=== PATIENT | male | born 1940 | race Caucasian/White ===

== ENCOUNTER 2017-12-27 10:49 | Emergency (ER) | payer OTHER ==
[~2017-12-27] VITALS: Ht 175.3 cm; Wt 41.8 kg
[~2017-12-27 10:49] MED LIST: IBUP-232 PO
--- NOTE | 2017-12-27 11:35 | PD ---
HPI Chief Complaint: Injury Time Seen by Provider: 11:27 Travel History International Travel<30 days: No Contact w/Intl Traveler<30days: No History of Present Illness HPI 77-year-old male presents to the emergency department for evaluation of left knee injury that occurred yesterday. Patient states he was having problems with his left knee. He saw his primary care physician yesterday and was referred to an orthopedist. However, upon returning from his appointment, he slipped and twisted his left knee. He did not fall. No head injury or LOC. No neck pain or back pain. No chest pain or abdominal pain. He states he is able to ambulate. He states the pain is worse when he bends over. Patient denies any pain at this moment as long as the knee is still. Moderate severity PFSH Past Medical History Diminished Hearing: No Immunizations Current: Yes Past Surgical History Appendectomy: Yes Cholecystectomy: Yes Tonsillectomy: Yes Social History Alcohol Use: Yes (one or two shots a day) Tobacco Use: No (quit 45 years ago) Substance Use: No Allergies-Medications (Allergen,Severity, Reaction): Coded Allergies: No Known Allergies (Unverified , 07/21/16) Reported Meds & Prescriptions Reported Meds & Active Scripts Active Reported Timolol Maleate (Timolol Maleate (Ophth)) 0.25 % Stephy 1 Drop EACH EYE BID Review of Systems Except as stated in HPI: all other systems reviewed are Neg Physical Exam Narrative GENERAL: Well-nourished, well-developed elderly man patient, afebrile. SKIN: Focused skin assessment warm/dry. No lacerations or abrasions HEAD: Normocephalic. Atraumatic. EYES: No scleral icterus. No injection or drainage. NECK: Supple, trachea midline. No JVD or lymphadenopathy. CARDIOVASCULAR: Regular rate and rhythm without murmurs, gallops, or rubs. Left pedal pulse is 2+ RESPIRATORY: Breath sounds equal bilaterally. No accessory muscle use. MUSCULOSKELETAL: No cyanosis, or edema. No reproducible tenderness of her left knee. He has full flexion-extension. No obvious deformity. BACK: Nontender without obvious deformity. No CVA tenderness. Data Data Last Documented VS Vital Signs Date Time Temp Pulse Resp B/P (MAP) Pulse Ox O2 Delivery O2 Flow Rate FiO2 12/27/17 11:38 98.6 60 18 164/81 (108) 97 Orders Orders Knee, Complete (4vws) (12/27/17 ) Ibuprofen (Motrin) (12/27/17 11:45) MDM Medical Decision Making Medical Screen Exam Complete: Yes Emergency Medical Condition: Yes Medical Record Reviewed: Yes Interpretation(s) x-ray of the left knee - CONCLUSION: Very small suprapatellar effusion. No fracture.. Differential Diagnosis Knee sprain versus strain versus fracture versus dislocation Narrative Course 77 year old male presents to the emergency department for evaluation of left knee pain after he twisted it yesterday. X-ray of the left knee is ordered and pending X-ray of the left knee shows no acute fracture. Patient is provided Ajay bandage for support. He is a take Tylenol or ibuprofen [id number] for pain. He is to follow-up with an orthopedist. He verbalizes agreement and understanding. The patient was discharged in stable condition with instructions, including return instructions and follow up instructions. Diagnosis Primary Impression: Left knee sprain Qualified Codes: S83.92XA - Sprain of unspecified site of left knee, initial encounter Referrals: Orthopedist call for appointment Patient Instructions: General Instructions, Knee Sprain (ED) Additional Instructions: Wear Ajay bandage as needed for support. Ice for 20 minutes 4-5 times daily. [id number] Tylenol or ibuprofen as needed for pain. Follow-up with orthopedist. Return to the emergency department for any acute worsening of symptoms Med/Other Pt SpecificInfo: No Change to Meds Disposition: 01 DISCHARGE HOME Condition: Stable Elizabeth Ayala Dec 27, 2017 11:35
[2017-12-27 11:38] VITALS: BP 164/81; PULSE 60; RESP 18; TEMP 98.6; O2SAT 97
[2017-12-27] MEDS ORDERED: TIMO0.2517 EACH EYE (11:38)
[2017-12-27] MEDS ORDERED: IBUPROFEN 400 MG TAB PO ONE (11:45)
--- NOTE | 2017-12-27 12:17 | RADRPT ---
EXAM DATE/TIME: 12/27/2017 11:42 [facility] COMPARISON: No previous studies available for comparison. INDICATIONS : Left knee pain/swelling post twisting trying to break a fall. MEDICAL HISTORY : None. SURGICAL HISTORY : Appendectomy. Cholecystectomy. Tonsillectomy. ENCOUNTER: Initial ACUITY: 2 days PAIN SCORE: 5/10 LOCATION: Left knee FINDINGS: Four view examination of the left knee demonstrates no evidence of fracture or dislocation. Bony min eralization is normal. The articular surfaces are intact. Very small suprapatellar effusion. Well co rticated flabella in the posterolateral joint space. CONCLUSION: Very small suprapatellar effusion. No fracture.. Naseem Gould MD on December 27, 2017 at 12:13 Board Certified Radiologist. This report was verified electronically.
== END 2017-12-27 12:50 | disposition home or self-care (01) ==
LOC: PHEFT 10:49
DX: S83.92XA Sprain of unspecified site of left knee, initial encounter (principal); W01.0XXA Fall on same level from slipping, tripping and stumbling without subsequent striking against object, initial encounter; X50.1XXA Overexertion from prolonged static or awkward postures, initial encounter; Z87.891 Personal history of nicotine dependence
CPT/HCPCS: 73564; 99283